=== PATIENT | female | born 1970 | race African-American/Black ===

== ENCOUNTER 2018-01-16 21:58 | Inpatient (IN) ==
[2018-01-16 23:28] LABS: Alanine Aminotransferase 54 U/L (10-53); Prothrombin Time 10.4 sec (9.8-11.6)
[2018-01-16 23:32] LABS: Alkaline Phosphatase 52 U/L (45-117); Total Protein 8.2 g/dL (6.4-8.2)
[2018-01-16 23:33] LABS: Albumin 4.2 g/dL (3.4-5.0); Anion Gap 6 meq/L (5-15); Aspartate Aminotransferase 201 U/L (15-37); Blood Urea Nitrogen 11 mg/dL (7-18); Calcium 8.9 mg/dL (8.5-10.1); Carbon Dioxide 27.3 meq/L (21.0-32.0); Chloride 108 meq/L (98-107); Creatine Kinase 81 U/L (26-192); Glomerular Filtration Rate 73 mL/min (>89); Glucose,Random 136 mg/dL (74-106); Lipase 85 U/L (73-393); Magnesium 2.1 mg/dL (1.5-2.5); Potassium 3.8 meq/L (3.5-5.1); Sodium 141 meq/L (136-145)
--- NOTE | 2018-01-16 23:34 | XR ---
EXAM DATE: 01/16/2018 11:24 PM EST AGE/SEX: 47 years / Female INDICATIONS: Chest pain. CLINICAL DATA: This is the patient's initial encounter. Patient reports that signs and symptoms have been present for 1 day and indicates a pain score of 4/10. MEDICAL/SURGICAL HISTORY: None. None. COMPARISON: No prior exams available for comparison. FINDINGS: A single AP view of the chest demonstrates the lungs to be symmetrically aerated without evidence of mass, infiltrate or effusion. The cardiomediastinal contours are unremarkable. Osseous structures a re intact. CONCLUSION: Negative examination. Electronically signed by: Parish Richmond MD 01/16/2018 11:33 PM EST
--- NOTE | 2018-01-16 23:57 | ED ---
HPI General Chief Complaint: Chest Pain Stated Complaint: chest pain Time Seen by Provider: 01/16/18 22:37 Source: patient Mode of arrival: ambulatory Limitations: no limitations History of Present Illness HPI narrative: Patient is a 47-year-old female presenting to the emerge department for evaluation of chest pain. Patient states it started Monday, she felt that it is getting progressively worse since that time. Pain is midsternal, described as tightness, no radiation. She is currently chest pain- free. She denies any cough, fever, chills. She states that she felt short of breath and had mild nausea, pain is intermittent, it was worse with exertion. She felt as if both of her hands went numb. She does report that she had neck spasms over the weekend and was taking ibuprofen for this. She denies any peripheral edema. She has a history of hypertension, she was on lisinopril but has been off of it for several months. She states that she monitors her blood pressure at home and it usually runs 140s over 80s. She denies any tobacco use , she denies any immediate family history of early heart disease, she states that her maternal grandfather of a heart attack in his late 60s. Patient currently does not have a primary doctor. MD complaint: Reports chest pain STEMI Alert: No Onset (ago): day(s) Duration: intermittent Onset: during rest and during exertion Pain location: Reports substernal Severity: moderate Quality: Reports tightness Pain radiation: Reports none Relieving factors: nothing Exacerbating factors: exertion Associated symptoms: Reports nausea and dyspnea Related Data Home Medications Medication Instructions Recorded Confirmed No Known Home Medications 01/16/18 01/16/18 Previous Rx's Medication Instructions Recorded amlodipine [Norvasc] 5 mg PO DAILY 30 Days #30 tab 01/19/18 cyanocobalamin (vitamin B-12) 1,000 mcg PO DAILY 30 Days #30 cap 01/19/18 pantoprazole 40 mg PO DAILY 30 Days #30 tab 01/19/18 Allergies Allergy/AdvReac Type Severity Reaction Status Date / Time No Known Allergies Allergy Verified 01/16/18 22:26 Review of Systems ROS: all other systems reviewed are negative [facility] Medical History Medical History HTN (hypertension) (Acute) Surgical History Surgical History No history of previous surgery (Acute) Family History Family History Mother Diabetes HTN (hypertension) Social History Social History Substance History: No History of Abuse Second Hand Smoke Exposure: No Smoking Status: Never smoker How Often Do You Have a Drink Containing Alcohol: Never Recent Travel in [facility] within the Last 8 Weeks: No Recent Out of Country Travel within the Last 8 Weeks: No Immunization History Tetanus Immunization: Unsure Exam Narrative Exam Narrative: GENERAL: Overweight, well-developed, alert -Italian female. Presenting in no acute distress. SKIN: Focused skin assessment warm/dry. HEAD: Atraumatic. Normocephalic. EYES: Pupils equal and round. No scleral icterus. No injection or drainage. ENT: No nasal bleeding or discharge. Mucous membranes pink and moist. NECK: Trachea midline. No JVD. CARDIOVASCULAR: Regular rate and rhythm. No murmur appreciated. RESPIRATORY: No accessory muscle use. Clear to auscultation. Breath sounds equal bilaterally. GASTROINTESTINAL: Abdomen soft, non-tender, nondistended. Hepatic and splenic margins not palpable. MUSCULOSKELETAL: No obvious deformities. No clubbing. No cyanosis. No edema. NEUROLOGICAL: Awake and alert. No obvious cranial nerve deficits. Motor grossly within normal limits. Normal speech. PSYCHIATRIC: Appropriate mood and affect; insight and judgment normal. Course Initial Documented Vital Signs Temperature 99 F 01/16/18 22:20 Pulse Rate 118 H 01/16/18 22:20 Respiratory Rate 18 01/16/18 22:20 Blood Pressure 212/93 H 01/16/18 22:20 Pulse Oximetry 96 01/16/18 22:20 Last Documented Vital Signs Temperature 98.4 F 01/19/18 08:00 Pulse Rate 59 L 01/19/18 08:00 Respiratory Rate 17 01/19/18 08:00 Blood Pressure 133/78 01/19/18 08:00 Pulse Oximetry 97 01/19/18 08:48 Sign Out Sign Out Data: Patient Sign Out occurred on 01/17/18 at 01:38. Patient's care was discussed, and care was transferred from Pita Sanders to Pete Damon. Sign Out Comment: Waiting on repeated H/H to result Last updated by Pita Sanders ARNP at 01/17/18 00:51 Medical Decision Making SHANTE Attestation SHANTE supervised visit: Yes Attestation: pt is severely anemic and has exertional SOB for weeks and has heavy period will transfuse and admit MDM Narrative Medical decision making narrative: Patient presented for evaluation of chest pain that started 4 days prior to her arrival in the emergency department. Patient vital signs are stable, labs and imaging ordered and pending. Patient is currently chest pain-free. IV access established, patient was placed on data reporting analyst continuous pulse oximetry. Initial EKG shows normal sinus rhythm with a rate of 85. Initial cardiac enzymes are negative. Hemoglobin resulted at 09/01, discussed with patient. She reported that she has had several years of heavy menstrual cycles, and worsening over the last few months. She states they are 5 days long and for the first 4 days she has to change her pad or tampon every 1-2 hours. She states she does feel dizzy at times. Anemia could be causing patients symptoms. pt has no recent labs since 2003 and at that time her H/H was over 11. Will repeat H/H to confirm. Pt signed out to Dr. Damon who will determine patients disposition. Medical Screen Exam Complete: Yes Emergency Medical Condition: Yes Lab Data Lab results reviewed: Yes I reviewed the patient's lab results. Result diagrams: 01/18/18 12:11 01/18/18 07:22 POC Results POC Urine Results Negative Lab Results 01/16/18 01/16/18 01/16/18 Range/Units 23:00 23:00 23:00 WBC 5.2 (4.0-11.0) th/mm3 RBC 1.85 L (4.00-5.30) mil/mm3 Hgb 7.0 L (11.6-15.3) gm/dL Hct 20.0 L* (35.0-46.0) % MCV 108.1 H (80.0-100.0) fL MCH 38.0 H (27.0-34.0) pg MCHC 35.2 (32.0-36.0) % RDW 24.6 H (11.6-17.2) % Plt Count 175 (150-450) th/mm3 MPV 8.9 (7.0-11.0) fL Prelim Diff (Auto) Slide review pending Neut % (Auto) 56.4 (16.0-70.0) % Lymph % (Auto) 38.7 (9.0-44.0) % [place] % (Auto) 3.4 (0.0-8.0) % Eos % (Auto) 1.2 (0.0-4.0) % Baso % (Auto) 0.3 (0.0-2.0) % Neut # (Auto) 2.9 (1.8-7.7) th/mm3 Lymph # (Auto) 2.0 (1.0-4.8) th/mm3 [place] # (Auto) 0.2 (0.0-0.9) th/mm3 Eos # (Auto) 0.1 (0.0-0.4) th/mm3 Baso # (Auto) 0.0 (0.0-0.2) th/mm3 WBC Differential . Diff Scan Auto diff confirmed Differential Comment . Platelet Estimate Normal (Normal) Platelet Morphology Normal (Normal) Dimorphic RBCs (None) Tear Drop Cells (None) Ovalocytes (None) Helmet Cells (None) Acanthocytes (Spur) Occ H (None) Keratocytes Occ H (None) PT 10.4 (9.8-11.6) sec INR 1.0 Ratio APTT 18.0 L (23.4-31.7) sec Sodium 141 (136-145) meq/L Potassium 3.8 (3.5-5.1) meq/L Chloride 108 H (98-107) meq/L Carbon Dioxide 27.3 (21.0-32.0) meq/L Anion Gap 6 (5-15) meq/L BUN 11 (7-18) mg/dL Creatinine 0.98 (0.50-1.00) mg/dL Estimated GFR 73 L (>89) mL/min Random Glucose 136 H (74-106) mg/dL Calcium 8.9 (8.5-10.1) mg/dL Magnesium 2.1 (1.5-2.5) mg/dL Iron (50-170) mcg/dL TIBC (250-450) mcg/dL % Saturation (20-50) % Ferritin (8-252) ng/mL Total Bilirubin 1.4 H (0.2-1.0) mg/dL AST 201 H (15-37) U/L ALT 54 H (10-53) U/L Alkaline Phosphatase 52 (45-117) U/L Total Creatine Kinase 81 (26-192) U/L Troponin I Less than 0.02 L (0.02-0.05) ng/mL Total Protein 8.2 (6.4-8.2) g/dL Albumin 4.2 (3.4-5.0) g/dL Lipase 85 (73-393) U/L Vitamin B12 (193-986) pg/mL Folate (3.1-17.5) ng/mL Beta HCG, Quant (0-5) mIU/mL Urine Color (Yellw/Straw) Urine Clarity (Clear) Urine pH (5.0-8.5) Ur Specific [place] (1.002-1.035) Urine Protein (Neg-Trace) mg/dL Urine Glucose (UA) (Negative) mg/dL Urine Ketones (Negative) mg/dL Urine Occult Blood (Negative) Urine Nitrate (Negative) Urine Bilirubin (Negative) Urine Urobilinogen (Less than 2) mg/dL Ur Leukocyte Esterase (Negative) Urine RBC (0-3) /hpf Urine WBC (0-5) /hpf Urine Bacteria (None) /hpf Hyaline Casts (0-3) /lpf Urine Mucus (Occasional) /lpf Ur Microscopic Review Blood Type Blood Type Recheck Antibody Screen MTS Gel Crossmatch 01/16/18 01/16/18 01/17/18 Range/Units 23:00 23:00 00:46 WBC (4.0-11.0) th/mm3 RBC (4.00-5.30) mil/mm3 Hgb 6.3 L* (11.6-15.3) gm/dL Hct 18.7 L* (35.0-46.0) % MCV (80.0-100.0) fL MCH (27.0-34.0) pg MCHC (32.0-36.0) % RDW (11.6-17.2) % Plt Count (150-450) th/mm3 MPV (7.0-11.0) fL Prelim Diff (Auto) Neut % (Auto) (16.0-70.0) % Lymph % (Auto) (9.0-44.0) % [place] % (Auto) (0.0-8.0) % Eos % (Auto) (0.0-4.0) % Baso % (Auto) (0.0-2.0) % Neut # (Auto) (1.8-7.7) th/mm3 Lymph # (Auto) (1.0-4.8) th/mm3 [place] # (Auto) (0.0-0.9) th/mm3 Eos # (Auto) (0.0-0.4) th/mm3 Baso # (Auto) (0.0-0.2) th/mm3 WBC Differential Diff Scan Differential Comment Platelet Estimate (Normal) Platelet Morphology (Normal) Dimorphic RBCs (None) Tear Drop Cells (None) Ovalocytes (None) Helmet Cells (None) Acanthocytes (Spur) (None) Keratocytes (None) PT (9.8-11.6) sec INR Ratio APTT (23.4-31.7) sec Sodium (136-145) meq/L Potassium (3.5-5.1) meq/L Chloride (98-107) meq/L Carbon Dioxide (21.0-32.0) meq/L Anion Gap (5-15) meq/L BUN (7-18) mg/dL Creatinine (0.50-1.00) mg/dL Estimated GFR (>89) mL/min Random Glucose (74-106) mg/dL Calcium (8.5-10.1) mg/dL Magnesium (1.5-2.5) mg/dL Iron 131 (50-170) mcg/dL TIBC 265 (250-450) mcg/dL % Saturation 49.5 (20-50) % Ferritin 157 (8-252) ng/mL Total Bilirubin (0.2-1.0) mg/dL AST (15-37) U/L ALT (10-53) U/L Alkaline Phosphatase (45-117) U/L Total Creatine Kinase (26-192) U/L Troponin I (0.02-0.05) ng/mL Total Protein (6.4-8.2) g/dL Albumin (3.4-5.0) g/dL Lipase (73-393) U/L Vitamin B12 Less than 60 L (193-986) pg/mL Folate 19.7 H (3.1-17.5) ng/mL Beta HCG, Quant Less than 1 (0-5) mIU/mL Urine Color (Yellw/Straw) Urine Clarity (Clear) Urine pH (5.0-8.5) Ur Specific [place] (1.002-1.035) Urine Protein (Neg-Trace) mg/dL Urine Glucose (UA) (Negative) mg/dL Urine Ketones (Negative) mg/dL Urine Occult Blood (Negative) Urine Nitrate (Negative) Urine Bilirubin (Negative) Urine Urobilinogen (Less than 2) mg/dL Ur Leukocyte Esterase (Negative) Urine RBC (0-3) /hpf Urine WBC (0-5) /hpf Urine Bacteria (None) /hpf Hyaline Casts (0-3) /lpf Urine Mucus (Occasional) /lpf Ur Microscopic Review Blood Type Blood Type Recheck Antibody Screen MTS Gel Crossmatch 01/17/18 01/17/18 01/17/18 Range/Units 00:46 01:54 03:16 WBC (4.0-11.0) th/mm3 RBC (4.00-5.30) mil/mm3 Hgb (11.6-15.3) gm/dL Hct (35.0-46.0) % MCV (80.0-100.0) fL MCH (27.0-34.0) pg MCHC (32.0-36.0) % RDW (11.6-17.2) % Plt Count (150-450) th/mm3 MPV (7.0-11.0) fL Prelim Diff (Auto) Neut % (Auto) (16.0-70.0) % Lymph % (Auto) (9.0-44.0) % [place] % (Auto) (0.0-8.0) % Eos % (Auto) (0.0-4.0) % Baso % (Auto) (0.0-2.0) % Neut # (Auto) (1.8-7.7) th/mm3 Lymph # (Auto) (1.0-4.8) th/mm3 [place] # (Auto) (0.0-0.9) th/mm3 Eos # (Auto) (0.0-0.4) th/mm3 Baso # (Auto) (0.0-0.2) th/mm3 WBC Differential Diff Scan Differential Comment Platelet Estimate (Normal) Platelet Morphology (Normal) Dimorphic RBCs (None) Tear Drop Cells (None) Ovalocytes (None) Helmet Cells (None) Acanthocytes (Spur) (None) Keratocytes (None) PT (9.8-11.6) sec INR Ratio APTT (23.4-31.7) sec Sodium (136-145) meq/L Potassium (3.5-5.1) meq/L Chloride (98-107) meq/L Carbon Dioxide (21.0-32.0) meq/L Anion Gap (5-15) meq/L BUN (7-18) mg/dL Creatinine (0.50-1.00) mg/dL Estimated GFR (>89) mL/min Random Glucose (74-106) mg/dL Calcium (8.5-10.1) mg/dL Magnesium (1.5-2.5) mg/dL Iron (50-170) mcg/dL TIBC (250-450) mcg/dL % Saturation (20-50) % Ferritin (8-252) ng/mL Total Bilirubin (0.2-1.0) mg/dL AST (15-37) U/L ALT (10-53) U/L Alkaline Phosphatase (45-117) U/L Total Creatine Kinase (26-192) U/L Troponin I (0.02-0.05) ng/mL Total Protein (6.4-8.2) g/dL Albumin (3.4-5.0) g/dL Lipase (73-393) U/L Vitamin B12 (193-986) pg/mL Folate (3.1-17.5) ng/mL Beta HCG, Quant (0-5) mIU/mL Urine Color Red (Yellw/Straw) Urine Clarity Hazy H (Clear) Urine pH 6.0 (5.0-8.5) Ur Specific [place] 1.013 (1.002-1.035) Urine Protein 100 H (Neg-Trace) mg/dL Urine Glucose (UA) Negative (Negative) mg/dL Urine Ketones Negative (Negative) mg/dL Urine Occult Blood Large H (Negative) Urine Nitrate Negative (Negative) Urine Bilirubin Negative (Negative) Urine Urobilinogen 4 or greater (Less than 2) mg/dL Ur Leukocyte Esterase Negative (Negative) Urine RBC (0-3) /hpf Urine WBC 14 H (0-5) /hpf Urine Bacteria Rare H (None) /hpf Hyaline Casts 7 (0-3) /lpf Urine Mucus Few H (Occasional) /lpf Ur Microscopic Review Not Reportable Blood Type O Positive Blood Type Recheck Not needed Antibody Screen Negative MTS Gel Crossmatch See Detail 01/17/18 01/17/18 01/18/18 Range/Units 16:16 22:30 04:10 WBC 5.9 (4.0-11.0) th/mm3 RBC 2.69 L (4.00-5.30) mil/mm3 Hgb 9.6 L D 9.1 L 8.9 L (11.6-15.3) gm/dL Hct 27.3 L 26.5 L 25.9 L (35.0-46.0) % MCV 101.7 H D (80.0-100.0) fL MCH 35.6 H (27.0-34.0) pg MCHC 35.0 (32.0-36.0) % RDW 27.0 H (11.6-17.2) % Plt Count 143 L (150-450) th/mm3 MPV 8.4 (7.0-11.0) fL Prelim Diff (Auto) Slide review pending Neut % (Auto) 64.5 (16.0-70.0) % Lymph % (Auto) 30.3 (9.0-44.0) % [place] % (Auto) 3.9 (0.0-8.0) % Eos % (Auto) 1.2 (0.0-4.0) % Baso % (Auto) 0.1 (0.0-2.0) % Neut # (Auto) 3.8 (1.8-7.7) th/mm3 Lymph # (Auto) 1.8 (1.0-4.8) th/mm3 [place] # (Auto) 0.2 (0.0-0.9) th/mm3 Eos # (Auto) 0.1 (0.0-0.4) th/mm3 Baso # (Auto) 0.0 (0.0-0.2) th/mm3 WBC Differential . Diff Scan Auto diff confirmed Differential Comment . Platelet Estimate Low L (Normal) Platelet Morphology Normal (Normal) Dimorphic RBCs Present H (None) Tear Drop Cells 1+ H (None) Ovalocytes 1+ H (None) Helmet Cells (None) Acanthocytes (Spur) (None) Keratocytes 1+ H (None) PT (9.8-11.6) sec INR Ratio APTT (23.4-31.7) sec Sodium (136-145) meq/L Potassium (3.5-5.1) meq/L Chloride (98-107) meq/L Carbon Dioxide (21.0-32.0) meq/L Anion Gap (5-15) meq/L BUN (7-18) mg/dL Creatinine (0.50-1.00) mg/dL Estimated GFR (>89) mL/min Random Glucose (74-106) mg/dL Calcium (8.5-10.1) mg/dL Magnesium (1.5-2.5) mg/dL Iron (50-170) mcg/dL TIBC (250-450) mcg/dL % Saturation (20-50) % Ferritin (8-252) ng/mL Total Bilirubin (0.2-1.0) mg/dL AST (15-37) U/L ALT (10-53) U/L Alkaline Phosphatase (45-117) U/L Total Creatine Kinase (26-192) U/L Troponin I (0.02-0.05) ng/mL Total Protein (6.4-8.2) g/dL Albumin (3.4-5.0) g/dL Lipase (73-393) U/L Vitamin B12 (193-986) pg/mL Folate (3.1-17.5) ng/mL Beta HCG, Quant (0-5) mIU/mL Urine Color (Yellw/Straw) Urine Clarity (Clear) Urine pH (5.0-8.5) Ur Specific [place] (1.002-1.035) Urine Protein (Neg-Trace) mg/dL Urine Glucose (UA) (Negative) mg/dL Urine Ketones (Negative) mg/dL Urine Occult Blood (Negative) Urine Nitrate (Negative) Urine Bilirubin (Negative) Urine Urobilinogen (Less than 2) mg/dL Ur Leukocyte Esterase (Negative) Urine RBC (0-3) /hpf Urine WBC (0-5) /hpf Urine Bacteria (None) /hpf Hyaline Casts (0-3) /lpf Urine Mucus (Occasional) /lpf Ur Microscopic Review Blood Type Blood Type Recheck Antibody Screen MTS Gel Crossmatch 01/18/18 01/18/18 01/18/18 Range/Units 07:22 07:22 12:11 WBC 5.5 (4.0-11.0) th/mm3 RBC 2.63 L (4.00-5.30) mil/mm3 Hgb 9.2 L 9.4 L (11.6-15.3) gm/dL Hct 26.6 L 26.9 L (35.0-46.0) % MCV 101.0 H (80.0-100.0) fL MCH 35.1 H (27.0-34.0) pg MCHC 34.7 (32.0-36.0) % RDW 26.7 H (11.6-17.2) % Plt Count 126 L (150-450) th/mm3 MPV 8.1 (7.0-11.0) fL Prelim Diff (Auto) Slide review pending Neut % (Auto) 64.5 (16.0-70.0) % Lymph % (Auto) 29.5 (9.0-44.0) % [place] % (Auto) 4.2 (0.0-8.0) % Eos % (Auto) 1.5 (0.0-4.0) % Baso % (Auto) 0.3 (0.0-2.0) % Neut # (Auto) 3.6 (1.8-7.7) th/mm3 Lymph # (Auto) 1.6 (1.0-4.8) th/mm3 [place] # (Auto) 0.2 (0.0-0.9) th/mm3 Eos # (Auto) 0.1 (0.0-0.4) th/mm3 Baso # (Auto) 0.0 (0.0-0.2) th/mm3 WBC Differential . Diff Scan Auto diff confirmed Differential Comment . Platelet Estimate Low L (Normal) Platelet Morphology Normal (Normal) Dimorphic RBCs Present H (None) Tear Drop Cells 1+ H (None) Ovalocytes 1+ H (None) Helmet Cells Occ H (None) Acanthocytes (Spur) Occ H (None) Keratocytes Not Reportable (None) PT (9.8-11.6) sec INR Ratio APTT (23.4-31.7) sec Sodium 142 (136-145) meq/L Potassium 3.9 (3.5-5.1) meq/L Chloride 109 H (98-107) meq/L Carbon Dioxide 26.2 (21.0-32.0) meq/L Anion Gap 7 (5-15) meq/L BUN 9 (7-18) mg/dL Creatinine 0.83 (0.50-1.00) mg/dL Estimated GFR 89 (>89) mL/min Random Glucose 86 (74-106) mg/dL Calcium 8.9 (8.5-10.1) mg/dL Magnesium (1.5-2.5) mg/dL Iron (50-170) mcg/dL TIBC (250-450) mcg/dL % Saturation (20-50) % Ferritin (8-252) ng/mL Total Bilirubin (0.2-1.0) mg/dL AST (15-37) U/L ALT (10-53) U/L Alkaline Phosphatase (45-117) U/L Total Creatine Kinase (26-192) U/L Troponin I (0.02-0.05) ng/mL Total Protein (6.4-8.2) g/dL Albumin (3.4-5.0) g/dL Lipase (73-393) U/L Vitamin B12 (193-986) pg/mL Folate (3.1-17.5) ng/mL Beta HCG, Quant (0-5) mIU/mL Urine Color (Yellw/Straw) Urine Clarity (Clear) Urine pH (5.0-8.5) Ur Specific [place] (1.002-1.035) Urine Protein (Neg-Trace) mg/dL Urine Glucose (UA) (Negative) mg/dL Urine Ketones (Negative) mg/dL Urine Occult Blood (Negative) Urine Nitrate (Negative) Urine Bilirubin (Negative) Urine Urobilinogen (Less than 2) mg/dL Ur Leukocyte Esterase (Negative) Urine RBC (0-3) /hpf Urine WBC (0-5) /hpf Urine Bacteria (None) /hpf Hyaline Casts (0-3) /lpf Urine Mucus (Occasional) /lpf Ur Microscopic Review Blood Type Blood Type Recheck Antibody Screen MTS Gel Crossmatch Imaging Data Radiologist's impression: Chest X-Ray 01/16/18 22:37 CONCLUSION: Negative examination. Pelvis Ultrasound 01/17/18 01:11 CONCLUSION: 1. Multiple uterine fibroids. The largest measures 4.6 cm. 2. Lack of visualization of both ovaries. Discharge Plan Discharge Disposition Patient Disposition: Sign Out(ED Internal Use Only) Discharge Condition Condition: Stable Discharge Order Discharge Orders: Discharge Order (Routine); Ordered 01/19/18 Ordered By: Riley Pierson ED Use Only Admit Order (Routine); Ordered 01/17/18 Ordered By: Pete Damon Physicians Team ED Provider: Pete Damon Primary Care Provider: Primary Care Gilda Gomez Attending Provider: Riley Pierson Other Providers: Mick Cohen V Status ED Status: Left Department Discharge Information Discharge Date/Time: 01/17/18 05:58
[2018-01-17 00:12] LABS: Baso % (Auto) 0.3 % (0.0-2.0); Eos # (Auto) 0.1 th/mm3 (0.0-0.4); Eos % (Auto) 1.2 % (0.0-4.0); Lymph % (Auto) 38.7 % (9.0-44.0); Mean Corpuscular HGB Conc 35.2 % (32.0-36.0); Mean Corpuscular Volume 108.1 fL (80.0-100.0); Mean Platelet Volume 8.9 fL (7.0-11.0); Mono # (Auto) 0.2 th/mm3 (0.0-0.9); Mono % (Auto) 3.4 % (0.0-8.0); Neut # (Auto) 2.9 th/mm3 (1.8-7.7); Neut % (Auto) 56.4 % (16.0-70.0); Platelet Count 175 th/mm3 (150-450); Red Blood Count 1.85 mil/mm3 (4.00-5.30); Red Cell Distribution Width 24.6 % (11.6-17.2); White Blood Count 5.2 th/mm3 (4.0-11.0)
[2018-01-17 01:07] LABS: Hematocrit 18.7 % (35.0-46.0); Hemoglobin 6.3 gm/dL (11.6-15.3)
[2018-01-17 01:24] LABS: Platelet Estimate Normal (Normal); Platelet Morphology Normal (Normal)
[2018-01-17 01:25] LABS: Acanthocytes Occ
[2018-01-17 02:19] LABS: Bacteria,Urine Rare /hpf; Bilirubin,Urine Negative (Negative); Clarity,Urine Hazy (Clear); Color,Urine Red (Yellw/Straw); Glucose,Urine (UA) Negative (Negative); Hyaline Casts,Urine 7 /lpf (0-3); Leukocyte Esterase,Urine Negative (Negative); Mucus,Urine Few /lpf (Occasional); Nitrite,Urine Negative (Negative); Specific Gravity,Urine 1.013 (1.002-1.035); Urobilinogen,Urine 4 or Greater mg/dL (Less than 2)
--- NOTE | 2018-01-17 03:20 | US ---
EXAM DATE: 01/17/2018 2:39 AM EST AGE/SEX: 47 years / Female INDICATIONS: Abnormal pelvic bleeding. CLINICAL DATA: This is the patient's initial encounter. Patient reports that signs and symptoms have been present for 2 days and indicates a pain score of 2/10. MEDICAL/SURGICAL HISTORY: Hypertension. None. COMPARISON: No prior exams available for comparison. MEASUREMENTS: Uterus:__10.5 x 9.0 x 7.8 cm Endometrial Stripe:__>20 mm Right Ovary:__ . Not visualized. Left Ovary:__ . Not visualized. FINDINGS: The patient declined transvaginal imaging. Uterus: The uterus is anteverted. Multiple hypoechoic masses are seen consistent with intramural fib roids. The largest measures 4.6 cm. Endometrial Stripe: The endometrial stripe displays homogeneous echotexture. Right Ovary: Not visualized. Left Ovary: Not visualized. Fluid: No free fluid. Other: None. CONCLUSION: 1. Multiple uterine fibroids. The largest measures 4.6 cm. 2. Lack of visualization of both ovaries. Electronically signed by: Parish Richmond MD 01/17/2018 3:18 AM EST
[2018-01-17] MEDS ORDERED: Acetaminophen 325 MG Tablet PO PRN (03:46)
[2018-01-17] MEDS ORDERED: Naloxone Inj 0.4 MG/ML Vial IV.PUSH PRN (03:46)
[2018-01-17] MEDS ORDERED: Bisacodyl 10 MG Supp RECTAL PRN (03:46)
[2018-01-17] MEDS ORDERED: Sodium Chlor 0.9% Inj 250 ML IV.SIG SCH (04:00)
[2018-01-17 10:49] LABS: Ferritin 157 ng/mL (8-252); Folate 19.7 ng/mL (3.1-17.5)
[2018-01-17 10:54] LABS: % Iron Saturation 49.5 % (20-50); Iron 131 mcg/dL (50-170); Total Iron Binding Capacity 265 mcg/dL (250-450)
[2018-01-17] MEDS: Senna/Docusate Sodium 8.6/50 MG Tablet PO SCH ×2 (12:50→20:41)
--- NOTE | 2018-01-17 14:47 | P.HP ---
History of Present Illness Primary Care Physician: No Primary Care Physician Chief Complaint: fatigue, sob, chest pressure History of Present Illness: Patient is a pleasant 47-year-old female who presented to the emergency department for evaluation of chest pressure. Patient states it started Monday and has been getting progressively worse. Patient describes this pain as a tightness and states it did radiate and was intermittent. Patient denies any chest pain at this time. Denies cough fever or chills. Patient endorses that she has felt short of breath with intermittent chest pain on exertion. She states that generally she has felt shortness of breath on exertion with increasing fatigue over the last 1-2 months. She denies any noted bleeding. She does endorse that her menstrual cycles have been heavier than usual. Of note, patient states that she has been taking ibuprofen frequently for menstrual cramping, dental pain and generalized joint pain. She states she takes 800 mg daily. Upon arrival to ER patient's hemoglobin 7.0 hematocrit 20.0. 01/17/2018 hemoglobin dropped to 6.3. Hematocrit 18.7. Patient has order to receive 2 units of packed RBCs. Patient denies any heartburn or difficulty swallowing. She denies ever having had EGD or colonoscopy in the past. Patient denies any hematocrit emesis or melena stools. Denies any known family history for gastrointestinal disorders. - Diagnosis (1) Anemia Inpatient Certification: I certify that the inpatient services were ordered in accordance with Medicare regulations governing the order. This includes certification that hospital inpatient services are reasonable and necessary and in the case of services not specified as inpatient-only under 42 CFR 419.22(n), that they are appropriately provided as inpatient services in accordance to with the 2-midnight benchmark under 43 CFR 412.3(e) Estimated Total Length of Stay (Days): 2 Plans for Post Hospital Care: Home Review of Systems All other systems reviewed negative except as stated [facility] - History History Provided By: Patient - Medical History Medical History: Medical History (Last Reviewed 01/17/18 @ 14:46 by Ifeoma Copeland MD) HTN (hypertension) - Surgical History Surgical History: Surgical History (Last Reviewed 01/17/18 @ 14:46 by Ifeoma Copeland MD) No history of previous surgery - Family History Family History: Family History (Last Updated 01/17/18 @ 20:39 by Ifeoma Copeland MD) Mother Diabetes HTN (hypertension) - Social History I have reviewed the patient's Social History: Yes - Tobacco History Second Hand Smoke Exposure: No Smoking Status: Never smoker - Alcohol History How Often Do You Have a Drink Containing Alcohol: Never - Substance Use History Substance History: No History of Abuse - Travel History Recent Travel in the [place] Within the Last 8 Weeks: No Recent Travel Out of the Country Within the Last 8 Weeks: No - Immunization History Tetanus Immunization: Unsure Hx Influenza Vaccine This Season: No Medications and Allergies Active Medications: Active Medications Acetaminophen (Tylenol) 650 mg PO Q4H PRN PRN Reason: headache/fever/pain1-4 Hydrocodone Bitart/Acetaminophen (Lanse 5/325) 1 tab PO Q6H PRN PRN Reason: pain scale 5 to 10 Al Hydroxide/Mg Hydroxide (Milk Of Magnesia Liq) 30 ml PO Q12H PRN PRN Reason: Mild Constipation Bisacodyl (Dulcolax Supp) 10 mg RECTAL DAILY PRN PRN Reason: SEVERE CONSITIPATION Enalaprilat (Vasotec Inj) 2.5 mg IV.PUSH Q6H PRN PRN Reason: BP GREATER THAN 160/90 Sodium Chloride (Ns Inj) 250 mls @ 15 mls/hr IV.SIG ONCE [facility] Stop: 01/17/18 20:39 Last Admin: 01/17/18 04:16 Dose: 15 mls/hr Lactulose (Lactulose Liq) 30 ml PO DAILY PRN PRN Reason: SEVERE CONSITIPATION Naloxone HCl (Narcan Inj) 0.4 mg IV.PUSH UNSCH PRN PRN Reason: SEE LABEL COMMENTS Ondansetron HCl (Zofran Inj) 4 mg IV.PUSH Q6H PRN PRN Reason: NAUSEA OR VOMITING Senna/Docusate Sodium (Marjorie-Colace) 1 tab PO BID [facility] Last Admin: 01/17/18 12:50 Dose: Not Given Sennosides (Senokot) 17.2 mg PO Q12H PRN PRN Reason: Moderate Constipation Sodium Chloride (Ns Flush) 2 ml IV.FLUSH UNSCH PRN PRN Reason: FLUSH AFTER USING IV ACCESS Sodium Chloride (Ns Flush) 2 ml IV.FLUSH BID [facility] Last Admin: 01/17/18 12:50 Dose: 2 ml Sodium Chloride (Ns Flush) 2 ml IV.FLUSH PRN PRN PRN Reason: FLUSH AFTER USING IV ACCESS Allergies Allergy/AdvReac Type Severity Reaction Status Date / Time No Known Allergies Allergy Verified 01/16/18 22:26 Home Medications Medication Instructions Recorded Confirmed Type No Known Home Medications 01/16/18 01/16/18 History Exam Vital signs: Vital Signs 01/16/18 22:20 01/16/18 22:24 01/16/18 22:40 Temperature 99 F Pulse Rate 118 H 97 H Respiratory Rate 18 20 Blood Pressure 212/93 H 169/78 H Pulse Oximetry 96 99 99 01/16/18 23:55 01/17/18 00:03 01/17/18 02:04 Temperature Pulse Rate 82 83 81 Respiratory Rate 21 20 16 Blood Pressure 165/77 H 156/76 H 155/74 H Pulse Oximetry 99 99 99 01/17/18 02:24 01/17/18 03:03 01/17/18 04:06 Temperature 99.0 F Pulse Rate 77 81 80 Respiratory Rate 20 18 24 Blood Pressure 155/74 H 152/79 H 181/77 H Pulse Oximetry 98 97 99 01/17/18 04:11 01/17/18 04:27 01/17/18 04:41 Temperature 99 F 98.8 F Pulse Rate 80 77 77 Respiratory Rate 18 14 16 Blood Pressure 181/77 H 177/81 H 160/74 H Pulse Oximetry 99 100 100 01/17/18 04:56 01/17/18 05:11 01/17/18 05:29 Temperature 99 F 98.8 F Pulse Rate 82 79 74 Respiratory Rate 20 17 15 Blood Pressure 161/77 H 157/71 H 163/77 H Pulse Oximetry 100 100 100 01/17/18 05:42 01/17/18 05:58 01/17/18 06:26 Temperature 98.8 F 98.7 F 98.7 F Pulse Rate 79 81 81 Respiratory Rate 16 17 17 Blood Pressure 172/80 H 186/95 H 178/95 H Pulse Oximetry 100 99 99 01/17/18 06:48 01/17/18 06:54 01/17/18 08:00 Temperature 98.7 F 99.2 F Pulse Rate 81 68 Respiratory Rate 16 16 Blood Pressure 176/90 H 177/99 H Pulse Oximetry 99 99 100 01/17/18 09:00 01/17/18 12:00 Temperature 98.3 F Pulse Rate 76 78 Respiratory Rate 18 Blood Pressure 187/101 H Pulse Oximetry 100 Intake & Output 01/16/18 01/17/18 01/17/18 18:59 06:59 18:59 Intake Total 400 / 400 Balance 400 / 400 Weight 108.862 kg Intake: Intake (Blood Product) Amt 400 / 400 Rbc As-3 Leukoreduced Unit 0 / 0 [id number] Rbc As-3 Leukoreduced Unit 400 / 400 [id number] Other: Date of Last Bowel Movement 01/16/18 01/16/18 Narrative: GENERAL: Pleasant 47 yo F in nad. SKIN: Warm and dry. HEAD: Atraumatic. Normocephalic. EYES: Pupils equal and round. No scleral icterus. No injection or drainage. ENT: No nasal bleeding or discharge. Mucous membranes pink and moist. NECK: Trachea midline. No JVD. CARDIOVASCULAR: Regular rate and rhythm. RESPIRATORY: No accessory muscle use. Clear to auscultation. Breath sounds equal bilaterally. GASTROINTESTINAL: Abdomen soft, non-tender, nondistended. Hepatic and splenic margins not palpable. MUSCULOSKELETAL: Extremities without clubbing, cyanosis, or edema. No obvious deformities. NEUROLOGICAL: Awake and alert. No obvious cranial nerve deficits. Motor grossly within normal limits. Five out of 5 muscle strength in the arms and legs. Normal speech. PSYCHIATRIC: Appropriate mood and affect; insight and judgment normal. Results - Labs CBC & Chem 7: 01/17/18 16:16 01/16/18 23:00 Labs: Laboratory Results - last 24 hr 01/16/18 01/16/18 01/16/18 23:00 23:00 23:00 WBC 5.2 RBC 1.85 L Hgb 7.0 L Hct 20.0 L* MCV 108.1 H MCH 38.0 H MCHC 35.2 RDW 24.6 H Plt Count 175 MPV 8.9 Prelim Diff (Auto) Slide review pending Neut % (Auto) 56.4 Lymph % (Auto) 38.7 [place] % (Auto) 3.4 Eos % (Auto) 1.2 Baso % (Auto) 0.3 Neut # (Auto) 2.9 Lymph # (Auto) 2.0 [place] # (Auto) 0.2 Eos # (Auto) 0.1 Baso # (Auto) 0.0 WBC Differential . Diff Scan Auto diff confirmed Differential Comment . Platelet Estimate Normal Platelet Morphology Normal Acanthocytes (Spur) Occ H Keratocytes Occ H PT 10.4 INR 1.0 APTT 18.0 L Sodium 141 Potassium 3.8 Chloride 108 H Carbon Dioxide 27.3 Anion Gap 6 BUN 11 Creatinine 0.98 Estimated GFR 73 L Random Glucose 136 H Calcium 8.9 Magnesium 2.1 Iron TIBC % Saturation Ferritin Total Bilirubin 1.4 H AST 201 H ALT 54 H Alkaline Phosphatase 52 Total Creatine Kinase 81 Troponin I Less than 0.02 L Total Protein 8.2 Albumin 4.2 Lipase 85 Vitamin B12 Folate Beta HCG, Quant Urine Color Urine Clarity Urine pH Ur Specific [place] Urine Protein Urine Glucose (UA) Urine Ketones Urine Occult Blood Urine Nitrate Urine Bilirubin Urine Urobilinogen Ur Leukocyte Esterase Urine RBC Urine WBC Urine Bacteria Hyaline Casts Urine Mucus Ur Microscopic Review Blood Type Blood Type Recheck Antibody Screen MTS Gel Crossmatch 01/16/18 01/16/18 01/17/18 23:00 23:00 00:46 WBC RBC Hgb 6.3 L* Hct 18.7 L* MCV MCH MCHC RDW Plt Count MPV Prelim Diff (Auto) Neut % (Auto) Lymph % (Auto) [place] % (Auto) Eos % (Auto) Baso % (Auto) Neut # (Auto) Lymph # (Auto) [place] # (Auto) Eos # (Auto) Baso # (Auto) WBC Differential Diff Scan Differential Comment Platelet Estimate Platelet Morphology Acanthocytes (Spur) Keratocytes PT INR APTT Sodium Potassium Chloride Carbon Dioxide Anion Gap BUN Creatinine Estimated GFR Random Glucose Calcium Magnesium Iron 131 TIBC 265 % Saturation 49.5 Ferritin 157 Total Bilirubin AST ALT Alkaline Phosphatase Total Creatine Kinase Troponin I Total Protein Albumin Lipase Vitamin B12 Less than 60 L Folate 19.7 H Beta HCG, Quant Less than 1 Urine Color Urine Clarity Urine pH Ur Specific [place] Urine Protein Urine Glucose (UA) Urine Ketones Urine Occult Blood Urine Nitrate Urine Bilirubin Urine Urobilinogen Ur Leukocyte Esterase Urine RBC Urine WBC Urine Bacteria Hyaline Casts Urine Mucus Ur Microscopic Review Blood Type Blood Type Recheck Antibody Screen MTS Gel Crossmatch 01/17/18 01/17/18 01/17/18 00:46 01:54 03:16 WBC RBC Hgb Hct MCV MCH MCHC RDW Plt Count MPV Prelim Diff (Auto) Neut % (Auto) Lymph % (Auto) [place] % (Auto) Eos % (Auto) Baso % (Auto) Neut # (Auto) Lymph # (Auto) [place] # (Auto) Eos # (Auto) Baso # (Auto) WBC Differential Diff Scan Differential Comment Platelet Estimate Platelet Morphology Acanthocytes (Spur) Keratocytes PT INR APTT Sodium Potassium Chloride Carbon Dioxide Anion Gap BUN Creatinine Estimated GFR Random Glucose Calcium Magnesium Iron TIBC % Saturation Ferritin Total Bilirubin AST ALT Alkaline Phosphatase Total Creatine Kinase Troponin I Total Protein Albumin Lipase Vitamin B12 Folate Beta HCG, Quant Urine Color Red Urine Clarity Hazy H Urine pH 6.0 Ur Specific [place] 1.013 Urine Protein 100 H Urine Glucose (UA) Negative Urine Ketones Negative Urine Occult Blood Large H Urine Nitrate Negative Urine Bilirubin Negative Urine Urobilinogen 4 or greater Ur Leukocyte Esterase Negative Urine RBC Urine WBC 14 H Urine Bacteria Rare H Hyaline Casts 7 Urine Mucus Few H Ur Microscopic Review Not Reportable Blood Type O Positive Blood Type Recheck Not needed Antibody Screen Negative MTS Gel Crossmatch See Detail - Imaging Impressions Chest X-Ray 01/16/18 22:37 CONCLUSION: Negative examination. Pelvis Ultrasound 01/17/18 01:11 CONCLUSION: 1. Multiple uterine fibroids. The largest measures 4.6 cm. 2. Lack of visualization of both ovaries. Caprini VTE Risk Assessment Caprini VTE Risk Assessment: No/Low Risk (score <= 1) VTE Pharmacological Exception Reason: Active bleeding Caprini Risk Assessment Model: Point Value = 1 Point Value = 2 Point Value = 3 Point Value = 5 Age 41-60 Minor surgery BMI > 25 kg/m2 Swollen legs Varicose veins or History of unexplained or recurrent spontaneous Oral contraceptives or hormone replacement Sepsis (< 1 month) Serious lung disease, including pneumonia (< 1 month) Abnormal pulmonary function Acute myocardial infarction Congestive heart failure (< 1 month) History of inflammatory bowel disease Medical patient at bed rest Age 61-74 Arthroscopic surgery Major open surgery (> 45 min) Laparoscopic surgery (> 45 min) Malignancy Confined to bed (> 72 hours) Immobilizing plaster cast Central venous access Age >= 75 History of VTE Family history of VTE Factor V Leiden Prothrombin [id number] Lupus anticoagulant Anticardiolipin antibodies Elevated serum homocysteine Heparin-induced thrombocytopenia Other congenital or acquired thrombophilia Stroke (< 1 month) Elective arthroplasty Hip, pelvis, or leg fracture Acute spinal cord injury (< 1 month) Prophylaxis Regimen: Total Risk Factor Score Risk Level Prophylaxis Regimen 0-1 Low Early ambulation 2 Moderate Order ONE of the following: *Sequential Compression Device (SCD) *Heparin 5000 units SQ BID 3-4 Higher Order ONE of the following medications: *Heparin 5000 units SQ TID *Enoxaparin/Lovenox 40 mg SQ daily (WT < 150 kg, CrCl > 30 mL/min) *Enoxaparin/Lovenox 30 mg SQ daily (WT < 150 kg, CrCl > 10-29 mL/min) *Enoxaparin/Lovenox 30 mg SQ BID (WT < 150 kg, CrCl > 30 mL/min) AND/OR *Sequential Compression Device (SCD) 5 or more Highest Order ONE of the following medications: *Heparin 5000 units SQ TID (Preferred with Epidurals) *Enoxaparin/Lovenox 40 mg SQ daily (WT < 150 kg, CrCl > 30 mL/min) *Enoxaparin/Lovenox 30 mg SQ daily (WT < 150 kg, CrCl > 10-29 mL/min) *Enoxaparin/Lovenox 30 mg SQ BID (WT < 150 kg, CrCl > 30 mL/min) AND *Sequential Compression Device (SCD) Assessment and Plan - Assessment (1) Anemia Code(s): D64.9 - Anemia, unspecified Status: Acute - Plan Patient is a pleasant 47-year-old female who presented to the emergency department for evaluation of chest pressure. Patient states it started Monday and has been getting progressively worse. Patient describes this pain as a tightness and states it did radiate and was intermittent. Patient denies any chest pain at this time. Denies cough fever or chills. Patient endorses that she has felt short of breath with intermittent chest pain on exertion. She states that generally she has felt shortness of breath on exertion with increasing fatigue over the last 1-2 months. She denies any noted bleeding. She does endorse that her menstrual cycles have been heavier than usual. Of note, patient states that she has been taking ibuprofen frequently for menstrual cramping, dental pain and generalized joint pain. She states she takes 800 mg daily. Upon arrival to ER patient's hemoglobin 7.0 hematocrit 20.0. 01/17/2018 hemoglobin dropped to 6.3. Hematocrit 18.7. Patient has order to receive 2 units of packed RBCs. Patient denies any heartburn or difficulty swallowing. She denies ever having had EGD or colonoscopy in the past. Patient denies any hematocrit emesis or melena stools. Denies any known family history for gastrointestinal disorders. GI bleed with anemia -Patient presents with report of increasing fatigue over the last 1-2 months. States she has been taking ibuprofen 800 mg daily for dental pain, menstrual cramping and generalized joint pain. -01/17/2018 hemoglobin dropped to 6.3 hematocrit 18.7. 2 units packed RBCs. Monitor H/H -Start on pantoprazole drip -GI bleed likely related to NSAID use, avoid NSAID use -GI consulted, plan for EGD 01/18. NPo after midnight. , CLD for now -Hemoglobin and hematocrit every 6 hours x4 -Monitor for bleeding -Transfuse as needed DVT ppx scd/teds, CI chemical ppx as patient with GIB and anemia Discussed Condition With: patient, nurse
--- NOTE | 2018-01-17 14:59 | P.CONGI ---
History of Present Illness Consult date: 01/17/18 Consult reason: GI bleed with anemia Chief complaint: Anemia 6.3/18.7 History of Present Illness: Patient is a pleasant 47-year-old female who presented to the emergency department for evaluation of chest pressure. Patient states it started Monday and has been getting progressively worse. Patient describes this pain as a tightness and states it did radiate and was intermittent. Upon consultation, patient denies any chest pain cough fever or chills. Patient endorses that she has felt short of breath with intermittent chest pain on exertion. She states that generally she has felt shortness of breath on exertion with increasing fatigue over the last 1-2 months. She denies any noted bleeding. She does endorse that her menstrual cycles have been heavier than usual. Of note, patient states that she has been taking ibuprofen frequently for menstrual cramping, dental pain and generalized joint pain. She states she takes 800 mg daily. Upon arrival to ER patient's hemoglobin 7.0 hematocrit 20.0. 01/17/2018 hemoglobin 6.3. Hematocrit 18.7. Patient has order to receive 2 units of packed RBCs. Posttransfusion hemoglobin and hematocrit pending. Patient denies any heartburn or difficulty swallowing. She denies ever having had EGD or colonoscopy in the past. Patient denies any hematocrit emesis or melena stools. Denies any known family history for gastrointestinal disorders. Our service has been consulted to evaluate patient for GI bleed with anemia. Review of Systems All other systems reviewed negative except as stated in HPI PMFSH - History History Provided By: Patient - Medical History Medical History: Medical History (Last Reviewed 01/17/18 @ 14:46 by Ifeoma Copeland MD) HTN (hypertension) - Surgical History Surgical History: Surgical History (Last Reviewed 01/17/18 @ 14:46 by Ifeoma Copeland MD) No history of previous surgery - Tobacco History Second Hand Smoke Exposure: No Smoking Status: Never smoker - Alcohol History How Often Do You Have a Drink Containing Alcohol: Never - Substance Use History Substance History: No History of Abuse - Travel History Recent Travel in the [place] Within the Last 8 Weeks: No Recent Travel Out of the Country Within the Last 8 Weeks: No - Immunization History Tetanus Immunization: Unsure Hx Influenza Vaccine This Season: No Medications and Allergies Active Medications: Active Medications Acetaminophen (Tylenol) 650 mg PO Q4H PRN PRN Reason: headache/fever/pain1-4 Hydrocodone Bitart/Acetaminophen ([place] 5/325) 1 tab PO Q6H PRN PRN Reason: pain scale 5 to 10 Al Hydroxide/Mg Hydroxide (Milk Of Magnesia Liq) 30 ml PO Q12H PRN PRN Reason: Mild Constipation Bisacodyl (Dulcolax Supp) 10 mg RECTAL DAILY PRN PRN Reason: SEVERE CONSITIPATION Enalaprilat (Vasotec Inj) 2.5 mg IV.PUSH Q6H PRN PRN Reason: BP GREATER THAN 160/90 Sodium Chloride (Ns Inj) 250 mls @ 15 mls/hr IV.SIG ONCE IVON Stop: 01/17/18 20:39 Last Admin: 01/17/18 04:16 Dose: 15 mls/hr Pantoprazole Sodium 80 mg/ (Sodium Chloride) 35 mls @ 420 mls/hr IV.SIG BOLUS ONE Stop: 01/17/18 14:50 Pantoprazole Sodium 80 mg/ (Sodium Chloride) 100 mls @ 10 mls/hr IV.CONT CONT IVON Lactulose (Lactulose Liq) 30 ml PO DAILY PRN PRN Reason: SEVERE CONSITIPATION Naloxone HCl (Narcan Inj) 0.4 mg IV.PUSH UNSCH PRN PRN Reason: SEE LABEL COMMENTS Ondansetron HCl (Zofran Inj) 4 mg IV.PUSH Q6H PRN PRN Reason: NAUSEA OR VOMITING Senna/Docusate Sodium (Marjorie-Colace) 1 tab PO BID [facility] Last Admin: 01/17/18 12:50 Dose: Not Given Sennosides (Senokot) 17.2 mg PO Q12H PRN PRN Reason: Moderate Constipation Sodium Chloride (Ns Flush) 2 ml IV.FLUSH UNSCH PRN PRN Reason: FLUSH AFTER USING IV ACCESS Sodium Chloride (Ns Flush) 2 ml IV.FLUSH BID [facility] Last Admin: 01/17/18 12:50 Dose: 2 ml Sodium Chloride (Ns Flush) 2 ml IV.FLUSH PRN PRN PRN Reason: FLUSH AFTER USING IV ACCESS Allergies Allergy/AdvReac Type Severity Reaction Status Date / Time No Known Allergies Allergy Verified 01/16/18 22:26 Home Medications Medication Instructions Recorded Confirmed Type No Known Home Medications 01/16/18 01/16/18 History Exam Vital signs: Vital Signs 01/16/18 22:20 01/16/18 22:24 01/16/18 22:40 Temperature 99 F Pulse Rate 118 H 97 H Respiratory Rate 18 20 Blood Pressure 212/93 H 169/78 H Pulse Oximetry 96 99 99 01/16/18 23:55 01/17/18 00:03 01/17/18 02:04 Temperature Pulse Rate 82 83 81 Respiratory Rate 21 20 16 Blood Pressure 165/77 H 156/76 H 155/74 H Pulse Oximetry 99 99 99 01/17/18 02:24 01/17/18 03:03 01/17/18 04:06 Temperature 99.0 F Pulse Rate 77 81 80 Respiratory Rate 20 18 24 Blood Pressure 155/74 H 152/79 H 181/77 H Pulse Oximetry 98 97 99 01/17/18 04:11 01/17/18 04:27 01/17/18 04:41 Temperature 99 F 98.8 F Pulse Rate 80 77 77 Respiratory Rate 18 14 16 Blood Pressure 181/77 H 177/81 H 160/74 H Pulse Oximetry 99 100 100 01/17/18 04:56 01/17/18 05:11 01/17/18 05:29 Temperature 99 F 98.8 F Pulse Rate 82 79 74 Respiratory Rate 20 17 15 Blood Pressure 161/77 H 157/71 H 163/77 H Pulse Oximetry 100 100 100 01/17/18 05:42 01/17/18 05:58 01/17/18 06:26 Temperature 98.8 F 98.7 F 98.7 F Pulse Rate 79 81 81 Respiratory Rate 16 17 17 Blood Pressure 172/80 H 186/95 H 178/95 H Pulse Oximetry 100 99 99 01/17/18 06:48 01/17/18 06:54 01/17/18 08:00 Temperature 98.7 F 99.2 F Pulse Rate 81 68 Respiratory Rate 16 16 Blood Pressure 176/90 H 177/99 H Pulse Oximetry 99 99 100 01/17/18 09:00 01/17/18 12:00 Temperature 98.3 F Pulse Rate 76 78 Respiratory Rate 18 Blood Pressure 187/101 H Pulse Oximetry 100 Intake & Output 01/16/18 01/17/18 01/17/18 18:59 06:59 18:59 Intake Total 400 / 400 Balance 400 / 400 Weight 108.862 kg Intake: Intake (Blood Product) Amt 400 / 400 Rbc As-3 Leukoreduced Unit 0 / 0 [id number] Rbc As-3 Leukoreduced Unit 400 / 400 [id number] Other: Date of Last Bowel Movement 01/16/18 01/16/18 - Constitutional no acute distress, chronically ill appearing - Routine HEENT Exam Head: Present: normocephalic - Routine Respiratory Exam Present: CTA bilaterally - Routine Cardiovascular Exam Present: RRR - Routine Abdominal Exam Present: soft, normoactive bowel sounds. Absent: tenderness, distended, guarding, firm - Routine Extremities Exam Absent: edema - Routine Skin Exam Present: dry, pallor, warm - Routine Neurological Exam Present: alert Results - Labs CBC & Chem 7: 01/17/18 00:46 01/16/18 23:00 Labs: Laboratory Results - last 24 hr 01/16/18 01/16/18 01/16/18 23:00 23:00 23:00 WBC 5.2 RBC 1.85 L Hgb 7.0 L Hct 20.0 L* MCV 108.1 H MCH 38.0 H MCHC 35.2 RDW 24.6 H Plt Count 175 MPV 8.9 Prelim Diff (Auto) Slide review pending Neut % (Auto) 56.4 Lymph % (Auto) 38.7 [place] % (Auto) 3.4 Eos % (Auto) 1.2 Baso % (Auto) 0.3 Neut # (Auto) 2.9 Lymph # (Auto) 2.0 [place] # (Auto) 0.2 Eos # (Auto) 0.1 Baso # (Auto) 0.0 WBC Differential . Diff Scan Auto diff confirmed Differential Comment . Platelet Estimate Normal Platelet Morphology Normal Acanthocytes (Spur) Occ H Keratocytes Occ H PT 10.4 INR 1.0 APTT 18.0 L Sodium 141 Potassium 3.8 Chloride 108 H Carbon Dioxide 27.3 Anion Gap 6 BUN 11 Creatinine 0.98 Estimated GFR 73 L Random Glucose 136 H Calcium 8.9 Magnesium 2.1 Iron TIBC % Saturation Ferritin Total Bilirubin 1.4 H AST 201 H ALT 54 H Alkaline Phosphatase 52 Total Creatine Kinase 81 Troponin I Less than 0.02 L Total Protein 8.2 Albumin 4.2 Lipase 85 Vitamin B12 Folate Beta HCG, Quant Urine Color Urine Clarity Urine pH Ur Specific [place] Urine Protein Urine Glucose (UA) Urine Ketones Urine Occult Blood Urine Nitrate Urine Bilirubin Urine Urobilinogen Ur Leukocyte Esterase Urine RBC Urine WBC Urine Bacteria Hyaline Casts Urine Mucus Ur Microscopic Review Blood Type Blood Type Recheck Antibody Screen MTS Gel Crossmatch 01/16/18 01/16/18 01/17/18 23:00 23:00 00:46 WBC RBC Hgb 6.3 L* Hct 18.7 L* MCV MCH MCHC RDW Plt Count MPV Prelim Diff (Auto) Neut % (Auto) Lymph % (Auto) [place] % (Auto) Eos % (Auto) Baso % (Auto) Neut # (Auto) Lymph # (Auto) [place] # (Auto) Eos # (Auto) Baso # (Auto) WBC Differential Diff Scan Differential Comment Platelet Estimate Platelet Morphology Acanthocytes (Spur) Keratocytes PT INR APTT Sodium Potassium Chloride Carbon Dioxide Anion Gap BUN Creatinine Estimated GFR Random Glucose Calcium Magnesium Iron 131 TIBC 265 % Saturation 49.5 Ferritin 157 Total Bilirubin AST ALT Alkaline Phosphatase Total Creatine Kinase Troponin I Total Protein Albumin Lipase Vitamin B12 Less than 60 L Folate 19.7 H Beta HCG, Quant Less than 1 Urine Color Urine Clarity Urine pH Ur Specific [place] Urine Protein Urine Glucose (UA) Urine Ketones Urine Occult Blood Urine Nitrate Urine Bilirubin Urine Urobilinogen Ur Leukocyte Esterase Urine RBC Urine WBC Urine Bacteria Hyaline Casts Urine Mucus Ur Microscopic Review Blood Type Blood Type Recheck Antibody Screen [facility] Gel Crossmatch 01/17/18 01/17/18 01/17/18 00:46 01:54 03:16 WBC RBC Hgb Hct MCV MCH MCHC RDW Plt Count MPV Prelim Diff (Auto) Neut % (Auto) Lymph % (Auto) [place] % (Auto) Eos % (Auto) Baso % (Auto) Neut # (Auto) Lymph # (Auto) [place] # (Auto) Eos # (Auto) Baso # (Auto) WBC Differential Diff Scan Differential Comment Platelet Estimate Platelet Morphology Acanthocytes (Spur) Keratocytes PT INR APTT Sodium Potassium Chloride Carbon Dioxide Anion Gap BUN Creatinine Estimated GFR Random Glucose Calcium Magnesium Iron TIBC % Saturation Ferritin Total Bilirubin AST ALT Alkaline Phosphatase Total Creatine Kinase Troponin I Total Protein Albumin Lipase Vitamin B12 Folate Beta HCG, Quant Urine Color Red Urine Clarity Hazy H Urine pH 6.0 Ur Specific [place] 1.013 Urine Protein 100 H Urine Glucose (UA) Negative Urine Ketones Negative Urine Occult Blood Large H Urine Nitrate Negative Urine Bilirubin Negative Urine Urobilinogen 4 or greater Ur Leukocyte Esterase Negative Urine RBC Urine WBC 14 H Urine Bacteria Rare H Hyaline Casts 7 Urine Mucus Few H Ur Microscopic Review Not Reportable Blood Type O Positive Blood Type Recheck Not needed Antibody Screen Negative MTS Gel Crossmatch See Detail - Imaging Impressions Chest X-Ray 01/16/18 22:37 CONCLUSION: Negative examination. Pelvis Ultrasound 01/17/18 01:11 CONCLUSION: 1. Multiple uterine fibroids. The largest measures 4.6 cm. 2. Lack of visualization of both ovaries. Assessment and Plan (1) Anemia Status: Acute Code(s): D64.9 - Anemia, unspecified - Plan Patient is a pleasant 47-year-old female who presented to the emergency department for evaluation of chest pressure. Patient states it started Monday and has been getting progressively worse. Patient describes this pain as a tightness and states it did radiate and was intermittent. Upon consultation, patient denies any chest pain cough fever or chills. Patient endorses that she has felt short of breath with intermittent chest pain on exertion. She states that generally she has felt shortness of breath on exertion with increasing fatigue over the last 1-2 months. She denies any noted bleeding. She does endorse that her menstrual cycles have been heavier than usual. Of note, patient states that she has been taking ibuprofen frequently for menstrual cramping, dental pain and generalized joint pain. She states she takes 800 mg daily. Upon arrival to ER patient's hemoglobin 7.0 hematocrit 20.0. 01/17/2018 hemoglobin 6.3. Hematocrit 18.7. Patient has order to receive 2 units of packed RBCs. Posttransfusion hemoglobin and hematocrit pending. Patient denies any heartburn or difficulty swallowing. She denies ever having had EGD or colonoscopy in the past. Patient denies any hematocrit emesis or melena stools. Denies any known family history for gastrointestinal disorders. Our service has been consulted to evaluate patient for GI bleed with anemia. GI bleed with anemia -Patient presents with report of increasing fatigue over the last 1-2 months. States she has been taking ibuprofen 800 mg daily for dental pain, menstrual cramping and generalized joint pain. -01/17/2018 hemoglobin 6.3 hematocrit 18.7. 2 units packed RBCs ordered, post transfusion H&H pending. -GI bleed likely related to NSAID use Plan Please obtain consent for EGD N.p.o. after midnight Protonix drip Hemoglobin and hematocrit every 6 hours x4 Monitor for bleeding Transfuse as needed Avoid NSAIDs and anticoagulants Supportive care Notify GI for any active bleeding Further recommendations to follow This patient has been's by myself and Dr. Cohen and this note is written on his behalf - Attending Attestation Dr. Cohen
[2018-01-17] MEDS ORDERED: Pantoprazole Inj 80 MG in Sodium Chlor 0.9% Inj 100 ML IV.CONT SCH ×2 (16:00→17:40)
[2018-01-17] MEDS ORDERED: Pantoprazole Inj 80 MG in Sodium Chlor 0.9% Inj 35 ML IV.SIG ONE (16:00)
[2018-01-17 16:48] LABS: Baso % (Auto) 0.1 % (0.0-2.0); Eos # (Auto) 0.1 th/mm3 (0.0-0.4); Eos % (Auto) 1.2 % (0.0-4.0); Hematocrit 27.3 % (35.0-46.0); Hemoglobin 9.6 gm/dL (11.6-15.3); Lymph # (Auto) 1.8 th/mm3 (1.0-4.8); Lymph % (Auto) 30.3 % (9.0-44.0); Mean Corpuscular Hemoglobin 35.6 pg (27.0-34.0); Mean Corpuscular Volume 101.7 fL (80.0-100.0); Mean Platelet Volume 8.4 fL (7.0-11.0); Mono # (Auto) 0.2 th/mm3 (0.0-0.9); Mono % (Auto) 3.9 % (0.0-8.0); Neut # (Auto) 3.8 th/mm3 (1.8-7.7); Neut % (Auto) 64.5 % (16.0-70.0); Platelet Count 143 th/mm3 (150-450); Red Blood Count 2.69 mil/mm3 (4.00-5.30); White Blood Count 5.9 th/mm3 (4.0-11.0)
--- NOTE | 2018-01-17 17:10 | ECG ---
Date Performed: 01/16/2018 Time Performed: 23:07:16 PTAGE: 47 years EKG: Sinus rhythm POSSIBLE LEFT ATRIAL ENLARGEMENT POSSIBLE LEFT VENTRICULAR HYPERTROPHY ABNORMAL ECG NO PREVIOUS TRACING DOCTOR: Kaleb Mtz Interpretating Date/Time 01/17/2018 17:09:36
[2018-01-17 18:21] LABS: Dimorphic RBC Present
[2018-01-17 18:23] LABS: Ovalocytes 1+
[2018-01-17 18:28] LABS: Tear Drop Cells 1+
[2018-01-17 18:29] LABS: Platelet Morphology Normal (Normal)
[2018-01-17 23:30] LABS: Hematocrit 26.5 % (35.0-46.0); Hemoglobin 9.1 gm/dL (11.6-15.3)
[2018-01-18 04:32] LABS: Hematocrit 25.9 % (35.0-46.0); Hemoglobin 8.9 gm/dL (11.6-15.3)
[2018-01-18] MEDS: Senna/Docusate Sodium 8.6/50 MG Tablet PO SCH ×2 (08:37→20:48)
[2018-01-18 08:38] LABS: Baso % (Auto) 0.3 % (0.0-2.0); Eos # (Auto) 0.1 th/mm3 (0.0-0.4); Eos % (Auto) 1.5 % (0.0-4.0); Hematocrit 26.6 % (35.0-46.0); Hemoglobin 9.2 gm/dL (11.6-15.3); Lymph # (Auto) 1.6 th/mm3 (1.0-4.8); Lymph % (Auto) 29.5 % (9.0-44.0); Mean Corpuscular HGB Conc 34.7 % (32.0-36.0); Mean Corpuscular Hemoglobin 35.1 pg (27.0-34.0); Mean Platelet Volume 8.1 fL (7.0-11.0); Mono # (Auto) 0.2 th/mm3 (0.0-0.9); Mono % (Auto) 4.2 % (0.0-8.0); Neut # (Auto) 3.6 th/mm3 (1.8-7.7); Neut % (Auto) 64.5 % (16.0-70.0); Platelet Count 126 th/mm3 (150-450); Red Blood Count 2.63 mil/mm3 (4.00-5.30); Red Cell Distribution Width 26.7 % (11.6-17.2); White Blood Count 5.5 th/mm3 (4.0-11.0)
[2018-01-18 09:06] LABS: Acanthocytes Occ; Ovalocytes 1+; Tear Drop Cells 1+
[2018-01-18 09:07] LABS: Calcium 8.9 mg/dL (8.5-10.1); Carbon Dioxide 26.2 meq/L (21.0-32.0); Dimorphic RBC Present; Helmet Cells Occ; Platelet Morphology Normal (Normal); Potassium 3.9 meq/L (3.5-5.1)
--- NOTE | 2018-01-18 10:28 | GIPROC ---
[facility] [address] [facility]. [facility], [address] EGD PROCEDURE REPORT EXAM DATE: 01/18/2018 PATIENT NAME: Juanita Dixon MR #: [id number] BIRTHDATE: 1970 ATTENDING: Mick Cohen MD ORDER #: [id number] SECURITIES UNDERWRITER: Abiel Nava Jones, Julie, and Gradenia Contreras STATUS: inpatient INDICATIONS: The patient is a 47 yr old female here for an EGD due to chest pain and iron deficiency anemia PROCEDURE PERFORMED: EGD w/ biopsy MEDICATIONS: Per Anesthesia and None. TOPICAL ANESTHETIC: none CONSENT: The patient understands the risks and benefits of the procedure and understands that these risks include, but are not limited to: sedation, allergic reaction, infection, perforation and/or bleeding. Alternative means of evaluation and treatment include, among others: physical exam, x-rays, and/or surgical intervention. The patient elects to proceed with this endoscopic procedure. medical equipment was checked for proper function. Hand hygiene and appropriate measures for infection prevention was taken. After the risks, benefits and alternatives of the procedure were thoroughly explained, Informed consent was verified, confirmed and timeout was successfully executed by the treatment team. The patient was anesthetized with topical anesthesia and the Pentax EG-[id number] endoscope was introduced through the mouth and advanced to the second portion of the duodenum. Retroflexed views revealed a hiatal hernia The gastroscope was then slowly withdrawn and removed. ESOPHAGUS: There was LA Class A esophagitis noted. STOMACH: There was mild antral gastropathy noted. Cold forcep biopsies were taken at the antrum and angularis. DUODENUM: The duodenal mucosa appeared normal in the entire duodenum. ADVERSE EVENTS: There were no complications. IMPRESSIONS: 1. There was LA Class A esophagitis noted 2. Retroflexed views revealed a hiatal hernia RECOMMENDATIONS: 1. Await biopsy results. Biopsy results will not be ready for 7-10 days. If you don't hear from us in two weeks, call our office for biopsy results. 2. PROTONIX 40 QD PATIENT CONDITION: stable DISPOSITION: Inpatient REPEAT EXAM: Return as needed for EGD Mick Cohen MD eSigned: Mick Cohen MD 01/18/2018 10:28 AM cc: PATIENT NAME: Juanita Dixon MR#: [id number]
[2018-01-18 12:31] LABS: Hematocrit 26.9 % (35.0-46.0); Hemoglobin 9.4 gm/dL (11.6-15.3)
--- NOTE | 2018-01-18 15:34 | P.PNIM ---
Subjective Interval history: Patient is seen sitting up in bed. Reports that she feels much better since blood transfusion. She has not had any bloody/coffee ground emesis or red or dark tarry stools. she does continue to have fairly heavy vaginal bleeding. Does reports that periods are regular and are typically monthly and last about a week. This is unusual for her as most of her life she has had very light periods of only about 3 days. Last Pap smear was 2 years ago. She does follow outpatient with [facility] but has not seen them recently. No chest pain or shortness of breath. No syncope or dizziness. Physical Exam Vital signs: Last Vital Signs Temp 98.2 F 01/18/18 12:00 Pulse 72 01/18/18 12:00 Resp 18 01/18/18 12:00 BP 175/92 H 01/18/18 12:00 Pulse Ox 99 01/18/18 12:00 Intake & Output 01/16/18 01/17/18 01/18/18 01/19/18 06:59 06:59 06:59 06:59 Intake Total 400 / 400 1395 / 1395 650 / 650 Balance 400 / 400 1395 / 1395 650 / 650 Weight 108.862 kg Narrative: GENERAL: Well-nourished, well-developed adult female in no obvious distress. SKIN: Warm and dry. HEAD: Atraumatic. Normocephalic. CARDIOVASCULAR: Regular rate and rhythm. RESPIRATORY: No accessory muscle use. Clear to auscultation. Breath sounds equal bilaterally. GASTROINTESTINAL: Abdomen soft, non-tender, non-distended. Positive bowel sounds. MUSCULOSKELETAL: Extremities without clubbing, cyanosis, or edema. No obvious deformities. NEUROLOGICAL: Awake and alert. No obvious cranial nerve deficits. Motor grossly within normal limits. Normal speech. PSYCHIATRIC: Appropriate mood and affect; insight and judgment good. Results Labs CBC & Chem 7: 01/18/18 12:11 01/18/18 07:22 Assessment and Plan (1) Anemia: Code(s): D64.9 - Anemia, unspecified Status: Acute Plan Patient is a pleasant 47-year-old female who presented to the emergency department for evaluation of chest pressure. She states that generally she has felt shortness of breath on exertion with increasing fatigue over the last 1-2 months. She denies any bleeding. She does endorse that her menstrual cycles have been heavier than usual. Of note, patient states that she has been taking ibuprofen frequently for menstrual cramping, dental pain and generalized joint pain. She states she takes 800 mg daily. Anemia. Suspect GI bleed due to excessive NSAID use; also has menorrhagia -01/17/2018 hemoglobin dropped to 6.3 hematocrit 18.7. 2 units packed RBCs. -Monitor H/H -avoid NSAID use -GI consulted, EGD 01/18. Severe gastritis -Stop Protonix drip; now p.o. Protonix -Advance diet as tolerated -Follow-up outpatient [employer] for menorrhagia DVT ppx scd/teds, CI chemical ppx as patient with GIB and anemia Discharge planning: Likely home once cleared by GI Progress Note: Quality VTE Deep Vein Thrombosis/Pulmonary Embolism Present on Admission: No _ (1) Anemia Qualifiers: Anemia type: Bone marrow failure anemia type: Chronic kidney disease stage : Folate deficiency anemia type: Hemolytic anemia type: Iron deficiency anemia type: Other causes of anemia: Vitamin B12 deficiency anemia type:
[2018-01-18] MEDS: amLODIPine 5 MG Tablet PO SCH (16:22)
[2018-01-19 08:19] VITALS: BP 133/78; PULSE 59; RESP 17; TEMP 98.4
[2018-01-19] MEDS: Senna/Docusate Sodium 8.6/50 MG Tablet PO SCH (08:19)
[2018-01-19] MEDS: amLODIPine 5 MG Tablet PO SCH (08:20)
--- NOTE | 2018-01-19 08:23 | P.PNIM ---
Subjective Interval history: f/u; anemia in no acute distress. no chest pain, sob or dizziness. no active GI bleed. d/w the RN at the bedside. Physical Exam Vital signs: Vital Signs 01/18/18 10:34 01/18/18 12:00 01/18/18 16:00 Temperature 98.7 F 98.2 F 98.4 F Pulse Rate 67 72 76 Respiratory Rate 18 18 18 Blood Pressure 140/77 175/92 H 160/78 H Pulse Oximetry 98 99 100 01/18/18 20:00 01/19/18 00:00 01/19/18 04:00 Temperature 98.6 F 98.4 F 97.6 F Pulse Rate 71 63 57 L Respiratory Rate 18 17 16 Blood Pressure 165/85 H 129/71 130/76 Pulse Oximetry 99 99 99 01/19/18 08:00 Temperature 98.4 F Pulse Rate 59 L Respiratory Rate 17 Blood Pressure 133/78 Pulse Oximetry 99 Intake & Output 01/18/18 01/19/18 01/19/18 18:59 06:59 18:59 Intake Total 2650 / 2650 Balance 2650 / 2650 Weight 107.9 kg Intake: IV 350 / 350 Protonix Inj 80 MG In NS Inj 100 / 100 100 ML @ 10 mls/hr IV.CONT CONT IVON Rx#:[id number] Oral 1999 Anesthesia Amount 300 / 300 Other: # Voids 3 6 Date of Last Bowel Movement 01/16/18 01/16/18 # Bowel Movements 0 - Constitutional no acute distress - Routine Respiratory Exam Present: CTA bilaterally - Routine Cardiovascular Exam Present: RRR - Routine Abdominal Exam Present: soft - Routine Extremities Exam Comments: no pedal edema. - Routine Neurological Exam Present: alert, oriented X3 Results - Labs CBC & Chem 7: 01/18/18 12:11 01/18/18 07:22 Laboratory Results - last 24 hr 01/18/18 01/18/18 01/18/18 07:22 07:22 12:11 WBC 5.5 RBC 2.63 L Hgb 9.2 L 9.4 L Hct 26.6 L 26.9 L MCV 101.0 H MCH 35.1 H MCHC 34.7 RDW 26.7 H Plt Count 126 L MPV 8.1 Prelim Diff (Auto) Slide review pending Neut % (Auto) 64.5 Lymph % (Auto) 29.5 [place] % (Auto) 4.2 Eos % (Auto) 1.5 Baso % (Auto) 0.3 Neut # (Auto) 3.6 Lymph # (Auto) 1.6 [place] # (Auto) 0.2 Eos # (Auto) 0.1 Baso # (Auto) 0.0 WBC Differential . Diff Scan Auto diff confirmed Differential Comment . Platelet Estimate Low L Platelet Morphology Normal Dimorphic RBCs Present H Tear Drop Cells 1+ H Ovalocytes 1+ H Helmet Cells Occ H Acanthocytes (Spur) Occ H Keratocytes Not Reportable Sodium 142 Potassium 3.9 Chloride 109 H Carbon Dioxide 26.2 Anion Gap 7 BUN 9 Creatinine 0.83 Estimated GFR 89 Random Glucose 86 Calcium 8.9 Assessment and Plan - Assessment (1) Anemia Code(s): D64.9 - Anemia, unspecified Status: Acute - Plan Anemia. Suspect due to a combination of GI bleed due to excessive NSAID use and also has menorrhagia due to uterine fibroids and vitamin B12 deficiency -H/H improved and stable after PRBC transfusion. -avoid NSAID use -GI consulted, EGD 01/18. with esophagitis- -continue p.o. Protonix -f/u biopsy as outpatient and this was d/w the patient. -start on B12 supplementation -Follow-up outpatient [employer] for menorrhagia elevated LFT's- f/u as outpatient. Hypertension; continue Norvasc Discharge Planning: dc home today if cleared by GI. see med list. f/u; pcp,GI and [employer]. d/w the patient and RN.
--- NOTE | 2018-01-19 08:24 | P.DS ---
Date of admission: 01/17/18 03:04 Primary care physician: No Primary Care Physician Brief History from admission: Patient is a pleasant 47-year-old female who presented to the emergency department for evaluation of chest pressure. Patient states it started Monday and has been getting progressively worse. Patient describes this pain as a tightness and states it did radiate and was intermittent. Patient denies any chest pain at this time. Denies cough fever or chills. Patient endorses that she has felt short of breath with intermittent chest pain on exertion. She states that generally she has felt shortness of breath on exertion with increasing fatigue over the last 1-2 months. She denies any noted bleeding. She does endorse that her menstrual cycles have been heavier than usual. Of note, patient states that she has been taking ibuprofen frequently for menstrual cramping, dental pain and generalized joint pain. She states she takes 800 mg daily. Upon arrival to ER patient's hemoglobin 7.0 hematocrit 20.0. 01/17/2018 hemoglobin dropped to 6.3. Hematocrit 18.7. Patient has order to receive 2 units of packed RBCs. Patient denies any heartburn or difficulty swallowing. She denies ever having had EGD or colonoscopy in the past. Patient denies any hematocrit emesis or melena stools. Denies any known family history for gastrointestinal disorders. DS: Diagnosis - Discharge Diagnosis (1) Anemia Status: Acute DS: Summary Hospital Course: Anemia. Suspect due to a combination of GI bleed due to excessive NSAID use and also has menorrhagia due to uterine fibroids and vitamin B12 deficiency -H/H improved and stable after PRBC transfusion. -avoid NSAID use -GI consulted, EGD 01/18. with esophagitis- -continue p.o. Protonix -f/u biopsy as outpatient and this was d/w the patient. -start on B12 supplementation -Follow-up outpatient [facility] for menorrhagia Hypertension; continue Norvasc - Time Spent with Patient Total time spent providing and/or coordinating discharge services: Less than 30 minutes - Quality: VTE Deep Vein Thrombosis/Pulmonary Embolism Present on Admission: No Exam Vital signs: Vital Signs 01/18/18 10:34 01/18/18 12:00 01/18/18 16:00 Temperature 98.7 F 98.2 F 98.4 F Pulse Rate 67 72 76 Respiratory Rate 18 Blood Pressure 140/77 175/92 H 160/78 H Pulse Oximetry 98 99 100 01/18/18 20:00 01/19/18 00:00 01/19/18 04:00 Temperature 98.6 F 98.4 F 97.6 F Pulse Rate 71 63 57 L Respiratory Rate 18 17 16 Blood Pressure 165/85 H 129/71 130/76 Pulse Oximetry 99 99 99 01/19/18 08:00 Temperature 98.4 F Pulse Rate 59 L Respiratory Rate 17 Blood Pressure 133/78 Pulse Oximetry 99 Intake & Output 01/18/18 01/19/18 01/19/18 18:59 06:59 18:59 Intake Total 2650 / 2650 Balance 2650 / 2650 Weight 107.9 kg Intake: IV 350 / 350 Protonix Inj 80 MG In NS Inj 100 / 100 100 ML @ 10 mls/hr IV.CONT CONT IVON Rx#:[id number] Oral 1999 Anesthesia Amount 300 / 300 Other: # Voids 3 6 Date of Last Bowel Movement 01/16/18 01/16/18 # Bowel Movements 0 - Constitutional no acute distress - Routine Respiratory Exam Present: CTA bilaterally - Routine Cardiovascular Exam Present: RRR - Routine Abdominal Exam Present: soft - Routine Extremities Exam Comments: no pedal edema. - Routine Neurological Exam Present: alert, oriented X3 Results Procedures completed during hospitalization: EGD. Pending studies at discharge: Pending at discharge 01/18/18 13:39 Surgical [PTH] Routine Labs on day of discharge: Labs from last 24 hours 01/18/18 01/18/18 01/18/18 12:11 07:22 07:22 WBC 5.5 RBC 2.63 L Hgb 9.4 L 9.2 L Hct 26.9 L 26.6 L MCV 101.0 H MCH 35.1 H MCHC 34.7 RDW 26.7 H Plt Count 126 L MPV 8.1 Prelim Diff (Auto) Slide review pending Neut % (Auto) 64.5 Lymph % (Auto) 29.5 Faulk % (Auto) 4.2 Eos % (Auto) 1.5 Baso % (Auto) 0.3 Neut # (Auto) 3.6 Lymph # (Auto) 1.6 Faulk # (Auto) 0.2 Eos # (Auto) 0.1 Baso # (Auto) 0.0 WBC Differential . Diff Scan Auto diff confirmed Differential Comment . Platelet Estimate Low L Platelet Morphology Normal Dimorphic RBCs Present H Tear Drop Cells 1+ H Ovalocytes 1+ H Helmet Cells Occ H Acanthocytes (Spur) Occ H Keratocytes Not Reportable Sodium 142 Potassium 3.9 Chloride 109 H Carbon Dioxide 26.2 Anion Gap 7 BUN 9 Creatinine 0.83 Estimated GFR 89 Random Glucose 86 Calcium 8.9 - Impressions ITS Impressions Chest X-Ray 01/16/18 22:37 CONCLUSION: Negative examination. Pelvis Ultrasound 01/17/18 01:11 CONCLUSION: 1. Multiple uterine fibroids. The largest measures 4.6 cm. 2. Lack of visualization of both ovaries. Discharge Plan - Physicians Team Primary Care Provider: Primary Care Dreai,No Attending Provider: Riley Pierson Other Providers: Mick Cohen MD
[2018-01-19 08:49] VITALS: O2SAT 97
--- NOTE | 2018-01-19 10:19 | P.PNGI ---
Subjective Interval history: Patient up ambulating in room Denies any abdominal pain Denies any noted bleeding States menstrual bleeding scant Post EGD Physical Exam Vital signs: Vital Signs 01/18/18 10:34 01/18/18 12:00 01/18/18 16:00 Temperature 98.7 F 98.2 F 98.4 F Pulse Rate 67 72 76 Respiratory Rate 18 18 18 Blood Pressure 140/77 175/92 H 160/78 H Pulse Oximetry 98 99 100 01/18/18 20:00 01/19/18 00:00 01/19/18 04:00 Temperature 98.6 F 98.4 F 97.6 F Pulse Rate 71 63 57 L Respiratory Rate 18 17 16 Blood Pressure 165/85 H 129/71 130/76 Pulse Oximetry 99 99 99 01/19/18 08:00 01/19/18 08:48 Temperature 98.4 F Pulse Rate 59 L Respiratory Rate 17 Blood Pressure 133/78 Pulse Oximetry 99 97 Intake & Output 01/18/18 01/19/18 01/19/18 18:59 06:59 18:59 Intake Total 2650 / 2650 Balance 2650 / 2650 Weight 107.9 kg Intake: IV 350 / 350 Protonix Inj 80 MG In NS Inj 100 / 100 100 ML @ 10 mls/hr IV.CONT CONT IVON Rx#:[id number] Oral 1999 Anesthesia Amount 300 / 300 Other: # Voids 3 6 Date of Last Bowel Movement 01/16/18 01/16/18 # Bowel Movements 0 - Constitutional no acute distress - Routine HEENT Exam Head: Present: normocephalic - Routine Respiratory Exam Present: CTA bilaterally - Routine Abdominal Exam Present: soft, normoactive bowel sounds. Absent: tenderness, distended, guarding, firm - Routine Extremities Exam Absent: edema - Routine Skin Exam Present: dry, warm - Routine Neurological Exam Present: alert Results - Labs CBC & Chem 7: 01/18/18 12:11 01/18/18 07:22 Laboratory Results - last 24 hr 01/18/18 12:11 Hgb 9.4 L Hct 26.9 L - Procedures EGD. Assessment and Plan (1) Anemia Status: Acute Code(s): D64.9 - Anemia, unspecified - Plan Patient is a pleasant 47-year-old female who presented to the emergency department for evaluation of chest pressure. Patient states it started Monday and has been getting progressively worse. Patient describes this pain as a tightness and states it did radiate and was intermittent. Upon consultation, patient denies any chest pain cough fever or chills. Patient endorses that she has felt short of breath with intermittent chest pain on exertion. She states that generally she has felt shortness of breath on exertion with increasing fatigue over the last 1-2 months. She denies any noted bleeding. She does endorse that her menstrual cycles have been heavier than usual. Of note, patient states that she has been taking ibuprofen frequently for menstrual cramping, dental pain and generalized joint pain. She states she takes 800 mg daily. Upon arrival to ER patient's hemoglobin 7.0 hematocrit 20.0. 01/17/2018 hemoglobin 6.3. Hematocrit 18.7. Patient has order to receive 2 units of packed RBCs. Posttransfusion hemoglobin and hematocrit pending. Patient denies any heartburn or difficulty swallowing. She denies ever having had EGD or colonoscopy in the past. Patient denies any hematocrit emesis or melena stools. Denies any known family history for gastrointestinal disorders. Our service has been consulted to evaluate patient for GI bleed with anemia. GI bleed with anemia -Patient presents with report of increasing fatigue over the last 1-2 months. States she has been taking ibuprofen 800 mg daily for dental pain, menstrual cramping and generalized joint pain. -01/17/2018 hemoglobin 6.3 hematocrit 18.7. 2 units packed RBCs ordered, post transfusion H&H pending. -GI bleed likely related to NSAID use 01/19/2018 Patient denies abdominal pain, nausea or vomiting. Denies any noted bleeding. 01/18/2018 EGD revealed the following-- 1. There was LA Class A esophagitis noted 2. Retroflexed views revealed a hiatal hernia Hemoglobin 9.5 hematocrit 26.9 Plan Diet as tolerated Continue Protonix p.o. daily 40 mg Avoid all NSAIDs and anticoagulants Patient agrees to follow-up with PCP and GI post discharge Patient stable from GI standpoint for discharge. This patient has been seen by myself and Dr. Cohen of this note is written on his behalf - Attending Attestation Noel
== END 2018-01-19 10:31 | disposition home or self-care (01) ==
LOC: NEPE 21:58 → NEDA 01-17 03:04 → H7ONC 01-17 05:58 → N07 01-18 14:11
PROVIDERS: ADMIT Internal Medicine; ATTEND Internal Medicine
PROC: PANENDO (2018-01-18 09:55)